=== PATIENT | female | born 1945 | race Caucasian/White ===

== ENCOUNTER 2018-05-09 08:59 | Outpatient (CLI) | payer MEDICARE, BC ==
[2018-05-09 09:45] LABS: TOTAL HEMOGLOBIN 15.3 G/dl (12.0-16.0)
[2018-05-09] MEDS ORDERED: albuterol 2.5 MG/3 ML nebule ONE (10:04)
== END 2018-05-09 23:59 | disposition home or self-care (01) ==
LOC: RT 08:59
PROVIDERS: ATTEND Internal Medicine Pulmonary Disease
DX: J43.8 Other emphysema (principal); J44.9 Chronic obstructive pulmonary disease, unspecified; Z87.891 Personal history of nicotine dependence; R06.00 Dyspnea, unspecified
CPT/HCPCS: 85018; 94060; 94640; 94727; 94729